=== PATIENT | male | born 1970 | race Caucasian/White ===

== ENCOUNTER 2020-11-04 12:59 | Emergency (ER) | payer OTHER ==
[~2020-11-04] VITALS: Ht 172.7 cm; Wt 77.1 kg
[2020-11-04 14:33] LABS: HEMATOCRIT 39.6 % (42.0-52.0); MCH 31.5 pg (26.0-34.0); MCHC 35.4 g/dL (28.0-37.0); MCV 88.9 fL (80.0-100.0); MPV 8.2 fl. (7.2-11.1); NUCLEATED RBCS 0 /100WBC; PLATELET COUNT* 167 thou/uL (150-400); RBC 4.46 mil/uL (4.50-6.00); RDW-CV 12.7 % (10.5-14.5); WBC 7.5 thou/uL (4.0-11.0)
[2020-11-04 14:37] LABS: CREATININE 0.9 mg/dL (0.6-1.3); POTASSIUM 3.9 mmol/L (3.5-5.1)
[2020-11-04 14:41] LABS: ALBUMIN 2.4 g/dL (3.4-5.0); TOTAL BILIRUBIN 0.2 mg/dL (<0.1-1.0); TOTAL PROTEIN 6.7 g/dL (6.4-8.2)
--- NOTE | 2020-11-04 14:44 | EKG ---
[place] [address] ELECTROCARDIOGRAM REPORT Name: CHATA HUTCHINS Marko Room: [facility]#: [id number] Admission: 11/04/20 Attend Phys: Discharge: Date of : 74 Date of Service: 11/04/20 1412 Report #: [id number] THIS REPORT FOR: //name// [facility] ED Test Date: 2020-11-04 Test Time: 14:12:10 Pat Name: CHATA HUTCHINS Department: Room: Gender: Grass C[employer]: [facility] : 1970 Requested By: Harsha Cerna Order Number: [id number] MD: Pavan Crespo Measurements Intervals [place] Rate: 71 P: 42 MD: 185 QRS: 64 QRSD: 99 T: 34 QT: 395 QTc: 430 Interpretive Statements Sinus rhythm Baseline wander in lead(s) III,V1,V2,V3,V5 No previous ECG available for comparison Electronically Signed On 11-04-2020 14:44:28 CDT by Pavan Crespo [email or web address] <ELECTRONICALLY SIGNED> By: Pavan Crespo MD, LOCATED WITHIN [facility] 11/04/20 1444 141 141 Pavan Crespo MD, [facility]ATED [facility] /EPI
[2020-11-04 15:13] LABS: ABSOLUTE NEUTROPHILS 6.5 thou/uL (1.6-8.1); PLATELET ESTIMATE ADEQUATE
[2020-11-04 16:02] VITALS: BP 102/66
== END 2020-11-04 16:05 | disposition home or self-care (01) ==
LOC: M.ERS 12:59
PROVIDERS: Emergency Medicine Emergency Medical Services
DX: U07.1 COVID-19 (principal)